=== PATIENT | male | born 1995 | race Caucasian/White ===

== ENCOUNTER 2016-10-04 18:06 | Emergency (ER) | payer BC ==
[~2016-10-04] VITALS: Ht 188 cm; Wt 86.4 kg
[2016-10-04 18:09] VITALS: BP 131/56; TEMP 99
[2016-10-04] MEDS ORDERED: ZYRTEC 10MG10 MG PO (18:12)
[2016-10-04 19:12] LABS: PH 6 (5-8); SQUAMOUS EPITHELIAL None Seen /hpf; URINE APPEARANCE Clear; URINE BACTERIA Rare /hpf; URINE BILIRUBIN Negative (NEGATIVE); URINE BLOOD Negative (NEGATIVE); URINE COLOR Yellow; URINE GLUCOSE Negative (NEGATIVE); URINE KETONE Trace (NEGATIVE); URINE RBC 0-2 /hpf; URINE UROBILINOGEN Negative (NEGATIVE); URINE WBC 0-2 /hpf
[2016-10-04] MEDS ORDERED: FLEXERIL 1010 MG/TAB PO (19:37)
[2016-10-04 19:47] VITALS: PULSE 67
== END 2016-10-04 19:48 | disposition home or self-care (01) ==
LOC: COL.ER 18:06
PROVIDERS: Physician Assistant
DX: S39.012A Strain of muscle, fascia and tendon of lower back, initial encounter (principal); S30.0XXA Contusion of lower back and pelvis, initial encounter; W18.30XA Fall on same level, unspecified, initial encounter; Y92.310 Basketball court as the place of occurrence of the external cause

== ENCOUNTER 2017-07-17 20:39 | Emergency (ER) | payer OTHER ==
[~2017-07-17] VITALS: Ht 188 cm; Wt 86.4 kg
[~2017-07-17 20:39] MED LIST: FLEXERIL 1010 MG/TAB PO; ZYRTEC 10MG10 MG PO
[2017-07-17 20:43] VITALS: TEMP 99.1
[2017-07-17 21:49] VITALS: BP 150/81; PULSE 88
== END 2017-07-17 21:45 | disposition home or self-care (01) ==
LOC: COL.ER 20:39
DX: S93.401A Sprain of unspecified ligament of right ankle, initial encounter (principal); X50.0XXA Overexertion from strenuous movement or load, initial encounter; Y92.310 Basketball court as the place of occurrence of the external cause